=== PATIENT | female | born 1965 | race African-American/Black ===

== ENCOUNTER 2016-08-13 12:44 | Observation (INO) | payer OTHER ==
[2016-08-12 23:30] VITALS: BP 149/66
[2016-08-13] VITALS (8 sets, daily range): BP systolic 127–171; BP diastolic 62–100
[~2016-08-13] VITALS: Ht 160 cm; Wt 96.5 kg
[~2016-08-13 12:44] MED LIST: FLEXERIL10 MG PO; NAPROSYN500 MG PO; NOHOMEMEDS; PEPCID20 MG PO; PERCOCET 5/31 TABLET PO; PROMETHAZINE HC25 M1 PO
[2016-08-13 15:09] LABS: CHLORIDE 107 mEq/L (99-109); POTASSIUM 4.1 mEq/L (3.7-5.4); SODIUM 138 mEq/L (136-147)
[2016-08-13 15:10] LABS: BASOPHIL COUNT 0.1 K/uL (0-0.1); EOSINOPHIL (%) 4.1 % (0-5); EOSINOPHIL COUNT 0.2 K/uL (0-0.3); HEMATOCRIT 25.3 % (36.0-46.0); IMMATURE GRANULOCYTE (%) 1.2 % (0.0-0.7); IMMATURE GRANULOCYTE COUNT 0.7 K/uL; LYMPHOCYTE COUNT 1.9 K/uL (1.0-2.8); MCH 16.2 PG (29.0-34.0); MCHC 27.3 G/DL (30.0-36.0); MCV 59.5 FL (83-99); MONOCYTE COUNT 0.5 K/uL (0-0.8); NEUTROPHIL (%) 52.4 % (45-76); NEUTROPHIL COUNT 3.1 K/uL (1.8-6.4); RBC DIS.WIDTH-CV 19.7 % (11.8-14.6); RBC DIS.WIDTH-SD 40.3 % (39-53); RED BLOOD COUNT 4.25 M/uL (3.80-5.20); WHITE BLOOD COUNT 5.9 K/uL (4.1-10.2)
[2016-08-13 15:11] LABS: GLUCOSE 90 mg/dL (70-99)
[2016-08-13 15:13] LABS: ANION GAP 8 MEQ/L (2-14); TOTAL BILIRUBIN 0.2 mg/dL (0.0-1.0)
[2016-08-13 15:15] LABS: ALKALINE PHOSPHATASE 45 IU/L (3-129); GFR ESTIMATE (CALCULATED) > 59 mL/min/
[2016-08-13 15:16] LABS: UREA NITROGEN (BUN) 17 mg/dL (9-23)
[2016-08-13 16:27] LABS: HEMATOLOGY COMMENT 1 SMEAR COMPATIBLE; PLAT.SUFFICIENCY INCREASED; PLATELET COUNT 324 K/uL (156-360); USER ID NJB
[2016-08-13] MEDS ORDERED: PROTONIX40 MG PO (16:40)
[2016-08-13] MEDS ORDERED: VISINE TEARS DR30 ML BOTH EYES (16:40)
[2016-08-13] MEDS ORDERED: PROBIOTIC1 EAC1 PO (16:40)
[2016-08-13 19:38] LABS: ADD MIUA? YES; BILIRUBIN NEGATIVE; BLOOD NEGATIVE; COLOR YELLOW ((YELLOW)); GLUCOSE (STRIP) NEGATIVE; KETONES NEGATIVE; LEUKOCYTES MODERATE; NITRITE NEGATIVE; PROTEIN (STRIP) NEGATIVE; SPECIFIC GRAVITY 1.015 (1.000-1.030); UROBILINOGEN 0.2 MG/DL (0.2-1.0)
[2016-08-13 19:43] LABS: BACTERIA RARE /HPF; EPITHELIAL CELLS 2+ /HPF; MUCUS TRACE /LPF; RED BLOOD CELLS 0-5 /HPF (0-5)
[2016-08-14] VITALS (7 sets, daily range): BP systolic 121–149; BP diastolic 55–84
[2016-08-14 02:27] LABS: MCV 63.3 FL (83-99)
[2016-08-14 02:55] LABS: IRON 108 MCG/DL (35-150)
[2016-08-14 07:00] LABS: HEMATOCRIT 31.2 % (36.0-46.0); MCV 64.3 FL (83-99)
[2016-08-14 07:32] LABS: ALKALINE PHOSPHATASE 40 IU/L (3-129); ANION GAP 7 MEQ/L (2-14); CHLORIDE 104 MEQ/L (99-109); GFR ESTIMATE (CALCULATED) > 59 mL/min/; GLUCOSE 92 mg/dL (70-99); POTASSIUM 4.2 MEQ/L (3.7-5.4); SAMPLE HEMOLYSIS CHECK 0; SAMPLE ICTERIC CHECK 0; SAMPLE LIPEMIA CHECK 0; SODIUM 139 MEQ/L (136-147); TOTAL BILIRUBIN 0.6 MG/DL (0.0-1.0); UREA NITROGEN (BUN) 15 mg/dL (9-23)
[2016-08-14 07:58] LABS: FERRITIN 2 NG/ML (10-291)
[2016-08-14 08:02] LABS: LIPASE 20 U/L (1.0-51.0)
[2016-08-14 14:20] LABS: HEMATOCRIT 34.9 % (36.0-46.0); MCV 64.7 FL (83-99)
[2016-08-14 19:58] LABS: HEMATOCRIT 31.3 % (36.0-46.0)
[2016-08-15 00:05] VITALS: BP 150/63
[2016-08-15 02:27] LABS: HEMATOCRIT 31.4 % (36.0-46.0); MCV 63.3 FL (83-99)
[2016-08-15 03:35] VITALS: BP 135/63
[2016-08-15 07:32] LABS: ANION GAP 8 MEQ/L (2-14); CHLORIDE 105 MEQ/L (99-109); GFR ESTIMATE (CALCULATED) > 59 mL/min/; GLUCOSE 88 mg/dL (70-99); POTASSIUM 4.3 MEQ/L (3.7-5.4); SAMPLE HEMOLYSIS CHECK 1; SAMPLE ICTERIC CHECK 0; SAMPLE LIPEMIA CHECK 0; SODIUM 139 MEQ/L (136-147); UREA NITROGEN (BUN) 10 mg/dL (9-23)
[2016-08-15 08:10] VITALS: BP 136/76
[2016-08-15 08:30] LABS: HEMATOCRIT 32.2 % (36.0-46.0); MCH 18.6 PG (29.0-34.0); MCHC 28.9 G/DL (30.0-36.0); MCV 64.5 FL (83-99); PLATELET COUNT 256 K/uL (156-360); RBC DIS.WIDTH-CV 23.3 % (11.8-14.6); RBC DIS.WIDTH-SD 53.5 % (39-53); RED BLOOD COUNT 4.99 M/uL (3.80-5.20); WHITE BLOOD COUNT 5.8 K/uL (4.1-10.2)
[2016-08-15 11:32] VITALS: BP 127/68
[2016-08-15 11:46] LABS: C DIFF TOXIN NEGATIVE (NEGATIVE)
[2016-08-15 11:49] LABS: PROBE CHECK PASS; SPECIMEN PROCESSING CONTROL PASS
[2016-08-15 17:57] LABS: HEMATOCRIT 33.1 % (36.0-46.0); MCV 64.8 FL (83-99)
[2016-08-15 18:05] VITALS: BP 145/81
[2016-08-15 20:00] VITALS: BP 135/64
[2016-08-15 20:22] LABS: HEMATOCRIT 31.8 % (36.0-46.0); MCV 64.9 FL (83-99)
[2016-08-16 00:03] VITALS: BP 131/59
[2016-08-16 02:12] LABS: HEMATOCRIT 32.2 % (36.0-46.0); MCV 63.1 FL (83-99)
[2016-08-16 04:00] VITALS: BP 144/62
[2016-08-16 07:35] VITALS: BP 131/60
[2016-08-16 09:41] LABS: HEMATOCRIT 32.5 % (36.0-46.0); MCV 65.1 FL (83-99)
[2016-08-16] MEDS ORDERED: NICOTINE PATCH1 EAC2 TD (09:50)
[2016-08-16] MEDS ORDERED: ZOFRAN4 MG PO (09:51)
[2016-08-16 10:19] LABS: ANION GAP 8 MEQ/L (2-14); CHLORIDE 102 MEQ/L (99-109); GFR ESTIMATE (CALCULATED) > 59 mL/min/; POTASSIUM 4.5 MEQ/L (3.7-5.4); SAMPLE HEMOLYSIS CHECK 0; SAMPLE ICTERIC CHECK 0; SAMPLE LIPEMIA CHECK 0; SODIUM 138 MEQ/L (136-147); UREA NITROGEN (BUN) 10 mg/dL (9-23)
[2016-08-16 10:20] LABS: GLUCOSE 116 mg/dL (70-99)
[2016-08-16 11:42] LABS: HEMATOCRIT 32.4 % (36.0-46.0); MCH 18.7 PG (29.0-34.0); MCHC 28.7 G/DL (30.0-36.0); MCV 65.2 FL (83-99); RBC DIS.WIDTH-CV 23.9 % (11.8-14.6); RBC DIS.WIDTH-SD 54.3 % (39-53); RED BLOOD COUNT 4.97 M/uL (3.80-5.20); WHITE BLOOD COUNT 6.6 K/uL (4.1-10.2)
[2016-08-16 12:10] LABS: PLATELET COUNT UNABLE TO REPORT K/uL (156-360)
== END 2016-08-16 12:08 | disposition home or self-care (01) ==
LOC: EME 12:44 → EDOF 17:52 → 5SOUTH 17:52
PROVIDERS: Internal Medicine; Internal Medicine Gastroenterology; Physician Assistant
DX: D50.9 Iron deficiency anemia, unspecified (principal); N92.0 Excessive and frequent menstruation with regular cycle; K21.9 Gastro-esophageal reflux disease without esophagitis; I69.351 Hemiplegia and hemiparesis following cerebral infarction affecting right dominant side; F17.210 Nicotine dependence, cigarettes, uncomplicated; Z83.2 Family history of diseases of the blood and blood-forming organs and certain disorders involving the immune mechanism; R13.10 Dysphagia, unspecified; K25.9 Gastric ulcer, unspecified as acute or chronic, without hemorrhage or perforation; R10.9 Unspecified abdominal pain; G89.29 Other chronic pain; E66.01 Morbid (severe) obesity due to excess calories; Z68.37 Body mass index [BMI] 37.0-37.9, adult
CPT/HCPCS: 76856; 80048; 80053; 80069; 81003; 82272; 82607; 82728; 82746; 83516 90; 83540; 83690; 84439; 84443; 84466; 85014; 85018; 85025; 85027; 85660; 86850; 86900; 86901; 86920; 87493; 88305; 88342 TC; 99281; 99285; C9113; G0378; J1940; J2250; J2270; J2405; J3010; P9016

== ENCOUNTER 2017-01-20 08:35 | Day surgery (SDC) | payer OTHER ==
[~2017-01-20] VITALS: Ht 162.6 cm; Wt 95.5 kg
[~2017-01-20 08:35] MED LIST changes: +BENTYL10 MG PO; +BUSPAR7.5 MG PO; +CIPRO500 MG PO; +NICOTINE PATCH1 EAC2 TD; +PROBIOTIC1 EAC1 PO; +PROTONIX40 MG PO; +SERTRALINE HCL25 MG PO; +VISINE TEARS DR30 ML BOTH EYES; +ZOFRAN4 MG PO; +ZOLOFT25 MG PO
[2017-01-20 09:15] LABS: HEMATOCRIT 32.8 % (36.0-46.0); MCV 68.3 FL (83-99)
[2017-01-20 09:41] VITALS: BP 135/64
[2017-01-20 16:55] VITALS: BP 189/81
[2017-01-20 20:41] LABS: HEMATOCRIT 33.1 % (36.0-46.0); MCV 67.6 FL (83-99)
[2017-01-20 20:54] VITALS: BP 152/85; BP 152/850
[2017-01-20 23:19] VITALS: BP 134/80
[2017-01-21 03:30] VITALS: BP 144/80
[2017-01-21 07:04] LABS: HEMATOCRIT 29.7 % (36.0-46.0); MCH 19.9 PG (29.0-34.0); MCHC 29.3 G/DL (30.0-36.0); MCV 67.8 FL (83-99); RBC DIS.WIDTH-CV 22.9 % (11.8-14.6); RBC DIS.WIDTH-SD 54.2 % (39-53); RED BLOOD COUNT 4.38 M/uL (3.80-5.20); WHITE BLOOD COUNT 9.9 K/uL (4.1-10.2)
[2017-01-21 07:16] LABS: PLATELET COUNT 209 K/uL (156-360)
[2017-01-21 07:24] LABS: ALKALINE PHOSPHATASE 47 IU/L (3-129); ANION GAP 7 MEQ/L (2-14); CHLORIDE 103 MEQ/L (99-109); GFR ESTIMATE (CALCULATED) > 59 mL/min/; GLUCOSE 95 mg/dL (70-99); POTASSIUM 3.9 MEQ/L (3.7-5.4); SAMPLE HEMOLYSIS CHECK 0; SAMPLE ICTERIC CHECK 0; SAMPLE LIPEMIA CHECK 0; SODIUM 138 MEQ/L (136-147); TOTAL BILIRUBIN 0.5 MG/DL (0.0-1.0); UREA NITROGEN (BUN) 8 mg/dL (9-23)
[2017-01-21 08:30] VITALS: BP 162/78
[2017-01-21] MEDS ORDERED: ENDOCET 5-3251 EACH PO (08:35)
[2017-01-21] MEDS ORDERED: MOTRIN800 MG PO (08:35)
== END 2017-01-21 10:41 | disposition home or self-care (01) ==
LOC: SDC 08:35 → ENRESERV 15:43 → 2SOUTH 15:44 → 2EASTP 15:44 → ENRESERV 16:22 → 2EASTP 16:45
PROVIDERS: Obstetrics & Gynecology
DX: N80.0 Endometriosis of uterus (principal); K66.0 Peritoneal adhesions (postprocedural) (postinfection); N83.8 Other noninflammatory disorders of ovary, fallopian tube and broad ligament; N92.0 Excessive and frequent menstruation with regular cycle; N94.6 Dysmenorrhea, unspecified; E66.9 Obesity, unspecified; Z68.33 Body mass index [BMI] 33.0-33.9, adult; D64.9 Anemia, unspecified; F17.210 Nicotine dependence, cigarettes, uncomplicated
CPT/HCPCS: 80053; 85014; 85018; 85027; 88302; 88307; G0378; J0330; J0690; J1100; J1170; J1200; J1885; J2250; J2270; J2405; J2710; J3010; J7120

== ENCOUNTER 2017-09-17 04:12 | Observation (INO) | payer OTHER ==
[~2017-09-17] VITALS: Ht 170.2 cm; Wt 79.2 kg
[~2017-09-17 04:12] MED LIST changes: +ENDOCET 5-3251 EACH PO; +MOTRIN800 MG PO
[2017-09-17 05:05] LABS: APPEARANCE SL.HAZY ((CLEAR)); BILIRUBIN NEGATIVE; BLOOD SMALL; COLOR YELLOW ((YELLOW)); GLUCOSE (STRIP) 50; KETONES 20; LEUKOCYTES NEGATIVE; NITRITE NEGATIVE; PROTEIN (STRIP) >=500; SPECIFIC GRAVITY 1.045 (1.000-1.030); UROBILINOGEN 0.2 MG/DL (0.2-1.0)
[2017-09-17 05:13] LABS: AMPHETAMINE NEGATIVE (500 ng/mL); BARBITURATES NEGATIVE (200 ng/mL); BENZODIAZEPINES NEGATIVE (150 ng/mL); BUPRENORPHINE NEGATIVE (10 ng/mL); COCAINE PRESUMPTIVE POSITIVE (150 ng/mL); METHADONE NEGATIVE (200 ng/mL); METHAMPHETAMINE NEGATIVE (500 ng/mL); OPIATES (MORPHINE) NEGATIVE (100 ng/mL); OXYCODONE NEGATIVE (100 ng/mL); PHENCYCLIDINE NEGATIVE (25 ng/mL); PROPOXYPHENE NEGATIVE (300 ng/mL); THC CANNABINOIDS PRESUMPTIVE POSITIVE (50 ng/mL); TRICYCLIC ANTIDEPRESSANTS NEGATIVE (300 ng/mL)
[2017-09-17 05:17] LABS: BASOPHIL (%) 0.1 % (0-1); EOSINOPHIL (%) 0 % (0-5); HEMOGLOBIN 14.9 G/DL (11.9-15.5); IMMATURE GRANULOCYTE (%) 0.5 % (0.0-0.7); LYMPHOCYTE (%) 3.8 % (15-42); LYMPHOCYTE COUNT 0.4 K/uL (1.0-2.8); MCH 26.5 PG (29.0-34.0); MCHC 33.1 G/DL (30.0-36.0); MCV 80.1 FL (83-99); MONOCYTE (%) 4.4 % (3-12); MONOCYTE COUNT 0.5 K/uL (0-0.8); NEUTROPHIL (%) 91.2 % (45-76); NEUTROPHIL COUNT 10.3 K/uL (1.8-6.4); PLATELET COUNT 188 K/uL (156-360); RBC DIS.WIDTH-CV 15.4 % (11.8-14.6); RBC DIS.WIDTH-SD 44.8 % (39-53); RED BLOOD COUNT 5.62 M/uL (3.80-5.20); WHITE BLOOD COUNT 11.3 K/uL (4.1-10.2)
[2017-09-17 05:24] LABS: BACTERIA RARE /HPF; EPITHELIAL CELLS RARE /HPF; MUCUS NONE SEEN /LPF; RED BLOOD CELLS 0-5 /HPF (0-5); UCUL ADDED? NO; WHITE BLOOD CELLS 0-5 /HPF (0-5)
[2017-09-17 05:25] LABS: PTT 27.5 SEC (25-37)
[2017-09-17 05:37] LABS: ALBUMIN 4.5 g/dL (3.2-4.8); CHLORIDE 97 mEq/L (99-109); POTASSIUM 3.9 mEq/L (3.7-5.4)
[2017-09-17 05:38] LABS: SODIUM 140 mEq/L (136-147)
[2017-09-17 05:40] LABS: GLUCOSE 169 mg/dL (70-99); TOTAL PROTEIN 8.6 g/dL (6.4-8.3)
[2017-09-17 05:42] LABS: TOTAL BILIRUBIN 0.3 mg/dL (0.0-1.0)
[2017-09-17 05:43] LABS: SERUM ETHYL ALCOHOL < 10 mg/dL
[2017-09-17 05:44] LABS: ALKALINE PHOSPHATASE 80 IU/L (3-129); CREATININE 1.4 mg/dL (0.6-1.3); GFR ESTIMATE (CALCULATED) 51 mL/min/
[2017-09-17 05:45] LABS: AST (GOT) 43 IU/L (2-34); DIRECT BILIRUBIN 0.1 mg/dL (0.0-0.3)
[2017-09-17 05:46] LABS: UREA NITROGEN (BUN) 16 mg/dL (9-23)
[2017-09-17 05:47] LABS: SALICYLATE 6.2 MG/DL (15-30)
[2017-09-17 05:48] LABS: ACETAMINOPHEN (TYLENOL) < 10 mcg/mL (10-30); ALT (GPT) 28 IU/L (3-49); CREATINE KINASE 453 IU/L (1-294); LIPASE 39 U/L (1.0-51.0); TOTAL CK 453 IU/L (1-294)
[2017-09-17 05:54] LABS: CK-MB 5.2 ng/mL (0.0-4.9); CKMB RELATIVE INDEX 1.1 (0.0-3.9)
[2017-09-17 06:40] LABS: BASE EXCESS 5.1 mEq/L (-3 to +3); BICARBONATE 27.8 mEq/L (22-26); CARBOXY HGB 2.2 % (0-5); COMMENTS - BLOOD GASES C+A+; DEVICE ROOM AIR; METHEMOGLOBIN 1.1 % (0-1.5); PCO2 34 mm Hg (35-45); PO2 81 mm Hg (80-100); SITE RR; TOTAL RESP RATE 18 resp/min; pH 7.52 (7.35-7.45)
[2017-09-17 18:00] VITALS: BP 163/69
[2017-09-18] VITALS: BP 133/78
[2017-09-18 03:53] VITALS: BP 146/64
[2017-09-18 08:10] VITALS: BP 139/63
[2017-09-18 12:27] VITALS: BP 134/87
[2017-09-18 15:15] LABS: HEMATOCRIT 37.5 % (36.0-46.0); MCHC 31.5 G/DL (30.0-36.0); MCV 82.8 FL (83-99); PLATELET COUNT 178 K/uL (156-360); RBC DIS.WIDTH-CV 15.7 % (11.8-14.6); RBC DIS.WIDTH-SD 47.6 % (39-53); RED BLOOD COUNT 4.53 M/uL (3.80-5.20); WHITE BLOOD COUNT 6.8 K/uL (4.1-10.2)
[2017-09-18 15:16] LABS: HEMOGLOBIN 11.8 G/DL (11.9-15.5)
[2017-09-18 15:43] LABS: CHLORIDE 105 MEQ/L (99-109); SODIUM 138 MEQ/L (136-147); UREA NITROGEN (BUN) 13 mg/dL (9-23)
[2017-09-18 15:56] LABS: CREATININE 0.7 MG/DL (0.6-1.3); GFR ESTIMATE (CALCULATED) > 59 mL/min/; GLUCOSE 105 mg/dL (70-99); POTASSIUM 3.1 MEQ/L (3.7-5.4)
[2017-09-18] MEDS ORDERED: ASPIR 8181 M1 PO (16:13)
[2017-09-18] MEDS ORDERED: LIDOCAINE20 MG/1 M5 MM (16:27)
== END 2017-09-18 16:40 | disposition home or self-care (01) ==
LOC: EME → EDBD 04:12 → EDOF 05:46 → 5SOUTH 05:46 → ENRESERV 05:48 → 5SOUTH 18:06
PROVIDERS: Emergency Medicine; Hospitalist
DX: G40.409 Other generalized epilepsy and epileptic syndromes, not intractable, without status epilepticus (principal); E87.6 Hypokalemia; Z86.73 Personal history of transient ischemic attack (TIA), and cerebral infarction without residual deficits; E86.0 Dehydration; N28.9 Disorder of kidney and ureter, unspecified; R45.1 Restlessness and agitation; F32.9 Major depressive disorder, single episode, unspecified; F41.9 Anxiety disorder, unspecified; F14.10 Cocaine abuse, uncomplicated; F12.10 Cannabis abuse, uncomplicated; S01.512A Laceration without foreign body of oral cavity, initial encounter; K21.9 Gastro-esophageal reflux disease without esophagitis; D64.9 Anemia, unspecified; Z90.711 Acquired absence of uterus with remaining cervical stump; F17.210 Nicotine dependence, cigarettes, uncomplicated; E66.3 Overweight; Z83.3 Family history of diabetes mellitus; Z90.49 Acquired absence of other specified parts of digestive tract
CPT/HCPCS: 36600; 70450; 70551; 71045; 80048; 80076; 81003; 82550; 82553; 82803; 83690; 84999; 85025; 85027; 85610; 85730; 93005; 95819; 99281; 99285; G0378; G0480; J1630; J2060; J2250; J7030